=== PATIENT | male | born 1990 | race Caucasian/White ===

== ENCOUNTER 2022-07-01 12:44 | Emergency (ER) | payer OTHER, SELFPAY ==
--- NOTE | ~2022-07-01 | XR_ITS ---
EXAMINATION: XR finger 5th RT min 2V DATE: 07/01/2022 13:02 INDICATION: Pain at the distal right fifth finger after it was shut in a car door TECHNIQUE: Dorsal palmar, lateral and 2 oblique views of the right fifth digit were obtained COMPARISON: None FINDINGS: Alignment is normal. No fracture. Joint spaces are normal. Soft tissues are unremarkable. IMPRESSION: 1. Negative fifth finger radiographs. Reviewed, dictated and finalized at location B.
[2022-07-01 12:52] VITALS: BP 124/82; PULSE 67; RESP 16; TEMP 36.7; O2SAT 99
--- NOTE | 2022-07-01 12:59 | ED.GENADULT ---
HPI - General Adult General Chief complaint: Extremity Injury, Upper Stated complaint: injured finger History of Present Illness HPI narrative: 32 y/o male. PMHx None reported. Presents to [facility] today with acute complaints of RT 5th/Pinky finger injury. Pt reports to have accidentally slammed his finger in a vehicle door last MATHIAS. -Increased pain and throbbing to site since occurrence. -No open Fx or wounds. -No loss of digit/hand sensation or control. Related Data Allergies Allergy/AdvReac Type Severity Reaction Status Date / Time cat dander Allergy Mild Unknown Verified 07/01/22 12:52 Penicillins Allergy Mild NOT SURE Verified 07/01/22 12:52 Review of Systems Review of Systems: MUSCULOSKELETAL: RT Pinky/Pain injury. Denies additional joint pain, or myalgia. NEUROLOGIC: Denies numbness, or focal weakness. [facility], [facility] Past Medical History Medical History (Updated 07/01/22 @ 13:15 by ANTHONY Keller) Environmental allergies Surgical History Surgical History [place] teeth extracted age 3 Family History Family History Grandparent Malignant neoplasm of prostate Grandparent Alzheimer disease Social History Social History Smoking status: Former smoker Tobacco type: cigarettes Second hand tobacco smoke exposure: Yes Smoking end date: 09/20/17 Alcohol intake: current Alcohol use details: consumes 1 beer weekly Substance use: never Substance use type: does not use Gender identity (if verbalized by the patient): Male Exam Narrative: GENERAL: This is a well-nourished, well-developed adult, in no apparent distress. HEAD: normocephalic. NECK: Neck supple. CARDIOVASCULAR: Regular rate and rhythm. Strong pulses and cap refill RUE. There is mild subungual hematoma RT fifth digit nail plate. SPO2 on affected digit 97%. RESPIRATORY: Clear to auscultation. GASTROINTESTINAL: Abdomen soft. SKIN: warm, intact. No lacerations or open wounds/Fx at site. NEURO: Alert, active, and age appropriate. No focal neurologic deficits. Good sensation and discrimination RUE, all sites. EXTREMITIES: RT Fifth/Pinky finger distal phalanx and tip tenderness. There is moderate soft tissue swelling to site. No obvious deformity. Client is able to fully flex and extend finger at all joints, no laxity. ROM intact at joint, slightly inhibited 2/2 pain. Remainder of RUE exam is benign. Course Course Level of Care: Express Care Visit Vital Signs Vital signs: Vital Signs Temperature 36.7 C 07/01/22 12:52 Pulse Rate 67 07/01/22 12:52 Respiratory Rate 16 07/01/22 12:52 Blood Pressure 124/82 07/01/22 12:52 Pulse Oximetry 99 07/01/22 12:52 Temperature 36.7 C 07/01/22 12:52 Pulse Rate 67 07/01/22 12:52 Respiratory Rate 16 07/01/22 12:52 Blood Pressure 124/82 07/01/22 12:52 Pulse Oximetry 99 07/01/22 12:52 Medical Decision Making [facility] Narrative Medical decision making narrative: -Plain film radiology imaging reveals no acute bony disturbance. -No neurovascular deficits. -Client has been placed in metal/foam finger splint for healing purposes and as to avoid additional accidental injury to site until fully healed. -Additional ice and NSAID prn regimen is advised. -Will give short course [place] (6 tabs) for moderate to severe pain with smash type injury mechanism. -PCP F/U 1 week is advised. -Consider additional OP imaging with persistence or failure to heal. -ER W/emergent health status changes. Pt agrees. Differential Diagnosis Differential Diagnosis: Differential Diagnosis: Consideration of the following conditions may be warranted for the presenting problem, they are not final diagnoses: Sprain/strain, Contusion, Effusion, Bony Fracture, ligamentous injury, tendon injury, osteochondral dis
== END 2022-07-01 13:28 | disposition home or self-care (01) ==
PROVIDERS: Emergency Provider Nurse Practitioner Adult Health
DX: S63.616A Unspecified sprain of right little finger, initial encounter (principal); X58.XXXA Exposure to other specified factors, initial encounter; S60.151A Contusion of right little finger with damage to nail, initial encounter; Z87.891 Personal history of nicotine dependence
CPT/HCPCS: 29125; 73140; 99213; G0463

== ENCOUNTER 2024-12-12 08:28 | Emergency (ER) | payer OTHER, SELFPAY ==
--- NOTE | ~2024-12-12 | XR_ITS ---
EXAMINATION: [id number] DATE: 12/12/2024 09:35 INDICATION: Right chest injury. TECHNIQUE: A frontal view of the chest and 2 views on 4 radiographs of the right ribs were obtained. COMPARISON: CT abdomen and pelvis 01/30/2009 FINDINGS: A calcified left lung nodule is consistent with old granulomatous disease. No pleural effus ion or pneumothorax. The heart size is normal. IMPRESSION: 1. No rib fracture. Reviewed, dictated and finalized at location A. IMPRESSION: 1. No rib fracture.
[2024-12-12 08:56] VITALS: BP 126/88; PULSE 96; RESP 16; TEMP 37.4; O2SAT 100
--- NOTE | 2024-12-12 09:28 | ED.GENADULT ---
HPI - General Adult General Chief complaint: Upper Respiratory Infection Stated complaint: Rib Pain/Sinus Infection Symptoms Time Seen by Provider: 12/12/24 09:29 Source: patient, RN notes reviewed and old records reviewed Mode of arrival: ambulatory Limitations: no limitations History of Present Illness HPI narrative: 34 year old male who presents to [facility] with complaints of pain to the left lower anterior rib area from fall while snowboarding last Wednesday. Patient reports that since Wednesday of last week he has had some productive cough of some thick productive yellow sputum, some sinus congestion. He reports that today he has had some fevers and chills. Patient denies any shortness of breath,no ear pain or any sore throat.Patient reports that he has been taking Ibuprofen for his symptoms. MD complaint: rib pain from fall, cough sinus congestion and drainage,today fevers, chill Onset (ago): day(s) (5-6 days) Location: chest (right anterior ribs) Severity scale (1-10): 6 Treatments prior to arrival: NSAID Related Data Allergies Allergy/AdvReac Type Severity Reaction Status Date / Time cat dander Allergy Mild Unknown Verified 12/12/24 09:01 Penicillins Allergy Mild NOT SURE Verified 12/12/24 09:01 Review of Systems Review of Systems: CONSTITUTIONAL: Reports fever, chills, or sweats starting today EYES: Denies visual changes, redness, or discharge. ENT: Reports rhinorrhea, congestion, no sore throat, or otalgia. CARDIOVASCULAR: Denies chest pain, palpitations, or edema.reports right sided rib pain from fall RESPIRATORY: Reports cough denies dyspnea. GASTROINTESTINAL: Denies abdominal pain, nausea, vomiting, or diarrhea. GENITOURINARY: Denies dysuria or hematuria. SKIN: Denies rash or itching. MUSCULOSKELETAL: Denies back pain, joint pain, or myalgia. NEUROLOGIC: Denies headache, numbness, or weakness. PSYCHIATRIC: Denies anxiety or depression. All systems reviewed & are unremarkable except as noted in HPI and below PMFSH Past Medical History Medical History (Updated 12/13/24 @ 21:47 by Betty Guzman NP) Fracture of thumb, right, closed Environmental allergies Surgical History Surgical History (Updated 12/13/24 @ 21:40 by Betty Guzman NP) [place] teeth extracted Family History Family History Grandparent Malignant neoplasm of prostate Grandparent Alzheimer disease Social History Social History Smoking status: Former smoker Tobacco type: cigarettes Second hand tobacco smoke exposure: Yes Smoking end date: 09/20/17 Alcohol intake: current Alcohol use details: occasionally/monthly Substance use: current Substance use type: marijuana Do You Feel Safe in your Home?: Yes Lack of Transportation: No Lack of Food: Never True Current Housing: I Have Housing Concerned About Future Housing: No Difficulty Paying Gas/Electric Bills: No Difficulty Paying for Meds: No Currently Unemployed: No Difficulty w/ Childcare or Family Care: No Gender identity (if verbalized by the patient): Male Comments At time of signature, agree with nursing past medical, surgical, social and family history. There is no relevant family history pertinent to the presenting complaint Exam Narrative: GENERAL: Well-appearing, well-nourished, and in no acute distress. HEAD: Normocephalic, atraumatic. EYES: PERRLA and EOMI. ENT: Nares clear, clear rhinorrhea no epistaxis. Mucous membranes moist.TM's normal throat pink with no swelling post nasal drainage noted. NECK: Supple.no lymphadenopathy CHEST: Clear to auscultation. No respiratory distress. right rib pain, productive cough, SAO2 100% on room air HEART: Regular rate and rhythm. No murmur heard. Normal peripheral pulses. ABDOMEN: Soft, nontender, nondistended, normal active bowel sounds. EXTREMITIES: Normal range of motion. No edema. SKIN: Warm, dry, no rash.no bruising to chest noted NEURO: No focal deficits. Alert and oriented x3. Course Course Emergency Course: Patient is aware of diagnosis, understands and agrees to treatment plan.? Anticipatory guidance given.? Patient agrees to follow-up as directed and is aware of reasons to seek care at the emergency department. Portions of this record may have been created with voice recognition software Level of Care: Express Care Visit Vital Signs Vital signs: Vital Signs Temperature 37.4 C 12/12/24 08:56 Pulse Rate 96 12/12/24 08:56 Respiratory Rate 16 12/12/24 08:56 Blood Pressure 126/88 12/12/24 08:56 Pulse Oximetry 100 12/12/24 08:56 Temperature 37.4 C 12/12/24 08:56 Pulse Rate 96 12/12/24 08:56 Respiratory Rate 16 12/12/24 08:56 Blood Pressure 126/88 12/12/24 08:56 Pulse Oximetry 100 12/12/24 08:56 Oxygen Delivery Room Air 12/12/24 08:58 Reviewed Medical Decision Making MDM Narrative Medical decision making narrative: Exam findings and imaging show no acute concerns or changes; patient is non-toxic appearing and is in no distress.? Patient is appropriate for outpatient treatment and follow-up Differential Diagnosis Differential Diagnosis: URI, cough and congestion, viral infection, right rib fracture, right rib contusion, cough Medical Records Medical records reviewed: Yes I reviewed the external patient's medical records. Vital Signs Vital Signs: Vital Signs Temperature 37.4 C 12/12/24 08:56 Pulse Rate 96 12/12/24 08:56 Respiratory Rate 16 12/12/24 08:56 Blood Pressure 126/88 12/12/24 08:56 Pulse Oximetry 100 12/12/24 08:56 Temperature 37.4 C 12/12/24 08:56 Pulse Rate 96 12/12/24 08:56 Respiratory Rate 16 12/12/24 08:56 Blood Pressure 126/88 12/12/24 08:56 Pulse Oximetry 100 12/12/24 08:56 Oxygen Delivery Room Air 12/12/24 08:58 reviewed Imaging Data Attestation: I personally reviewed and interpreted this imaging study as follows: My impression: no rib fracture, no pleural effusion, no opacities noted old granulomatous lesion left lung Radiologist's impression: [facility] [id number] [facility] [address] XRay Report Signed Patient: Austin Mena : 1990 MR#: [id number] Age: 34 Acct:[id number] Loc: [id number] ADM Date: 12/12/24Attending Dr: Ordering Physician: Betty Guzman APRN Date of Service: 12/12/24 Procedure(s): XR ribs RT w PA CXR Accession Number(s): [id number] cc: Eder Zamora MD; Betty Guzman APRN~ EXAMINATION: [id number] DATE: 12/12/2024 09:35 INDICATION: Right chest injury. TECHNIQUE: A frontal view of the chest and 2 views on 4 radiographs of the right ribs were obtained. COMPARISON: CT abdomen and pelvis 01/30/2009 FINDINGS: A calcified left lung nodule is consistent with old granulomatous disease. No pleural effusion or pneumothorax. The heart size is normal. IMPRESSION: 1. No rib fracture. Reviewed, dictated and finalized at location A. Please be advised this is a medical document. It is intended for [id number] communication. It is written in medical language and may contain unfamiliar abbreviations or verbiage. Medical documents are intended to carry relevant information, facts as evident, and the clinical opinion of the practitioner at the time of the encounter. This report may have been done utilizing a voice recognition system. Attempts have been made to correct errors. However, there may be uncorrected grammatical, spelling, and recognition errors present. The file time of this note does not necessarily represent the time of service. Dictated By: Everett Mcarthur MD 12/12/24 0957 Signed By: <Electronically signed by Everett Mcarthur MD in OV> Critical Care Time Critical Care Time Critical Care Time: No Discharge Plan Discharge Clinical Impression: Acute cough, URI, acute Contusion of rib on right side Qualifiers: Encounter type: initial encounter Qualified Code(s): S20.211A - Contusion of right front wall of thorax, initial encounter Patient Disposition: Home, Self-Care Condition: Stable Instructions: Antibiotic Form, Upper Respiratory Infection (ED), Acute Cough (ED), Rib Contusion (ED) Additional Instructions: Increase fluids especially juices and water [id number] cough and cold medicine of your choice for your symptoms Zyrtec Claritin or Yasmine daily Mucinex DM Steroids as directed--take with food heat to the face 20-30 minutes 4-6 times a day for pain Salt water gargles, throat lozenges or throat sprays as desired Antibiotic as directed--finished the medication If your symptoms persist, change or worsen significantly before you can contact your personal physician then please, without delay, go to the emergency department for further evaluation. Follow-up with PCP in 7-10 days or sooner if needed Follow up with PCP soon in regards to your blood pressure which is elevated above threshold for referral. Blood pressure above 120/80 may indicate pre-hypertension. 126/88 Patient Language: Albanian Prescriptions: New prednisone 20 mg tablet 40 mg PO DAILY Qty: 10 0RF azithromycin 250 mg tablet See Rx Instructions .ROUTE .COMPLEX Qty: 6 0RF Rx Instructions: For 250 mg dose pack: take 500 mg today (day 1), then 250 mg for 4 days (days 2-5) Follow-up/Referrals: Ari Zamora MD [Primary Care Provider] - Time of Disposition: 10:12 Quality [place] Coma Scale Eyes: Open Verbal: Oriented and Alert Motor: Follows Commands Gina Coma Total Score: 15
== END 2024-12-12 10:15 | disposition home or self-care (01) ==
PROVIDERS: Emergency Provider Registered Nurse; PCP Family Medicine
DX: R05.1 Acute cough (principal); J06.9 Acute upper respiratory infection, unspecified; S20.211A Contusion of right front wall of thorax, initial encounter; W19.XXXA Unspecified fall, initial encounter; Y93.23 Activity, snow (alpine) (downhill) skiing, snowboarding, sledding, tobogganing and snow tubing; Z87.891 Personal history of nicotine dependence; F12.90 Cannabis use, unspecified, uncomplicated
CPT/HCPCS: 71101; 99213; G0463